=== PATIENT | female | born 1930 | race Caucasian/White ===

== ENCOUNTER 2016-09-27 12:11 | Emergency (ER) | payer OTHER ==
[~2016-09-27] VITALS: Ht 158.8 cm; Wt 75.3 kg
[~2016-09-27 12:11] MED LIST: CELEBREX200 MG PO; Coumadin,Jantoven PO; DIOVAN320 MG PO; FIBER TABS625 MG PO; Lopid PO; Percocet 5/325,Endoc PO; PriLOSEC PO; Senokot S,Pericolace PO; Xalatan 0.005% Ophth BOTH EYES
[2016-09-27] MEDS ORDERED: PRAVASTATIN SOD40 MG PO (12:36)
[2016-09-27] MEDS ORDERED: LATANOPROST2.5 ML BOTH EYES (12:36)
[2016-09-27] MEDS ORDERED: METFORMIN HCL500 M1 PO (12:37)
[2016-09-27 15:55] VITALS: BP 119/84
== END 2016-09-27 16:11 | disposition home or self-care (01) ==
LOC: EME 12:11
PROC: 0SSBXZZ Reposition Left Hip Joint, External Approach (ICD-10-PCS; principal; 2016-09-27)
DX: T84.021A Dislocation of internal left hip prosthesis, initial encounter (principal); X50.9XXA Other and unspecified overexertion or strenuous movements or postures, initial encounter; Y92.008 Other place in unspecified non-institutional (private) residence as the place of occurrence of the external cause; K21.9 Gastro-esophageal reflux disease without esophagitis; E78.5 Hyperlipidemia, unspecified; I10 Essential (primary) hypertension; E11.9 Type 2 diabetes mellitus without complications; Z90.49 Acquired absence of other specified parts of digestive tract; Z79.01 Long term (current) use of anticoagulants
CPT/HCPCS: 73501; 73502; 81003; 99281; 99285; J2405; J3010